=== PATIENT | female | born 1955 | race Caucasian/White ===

== ENCOUNTER 2016-11-21 13:42 | Inpatient (IN) | payer MEDICARE ==
[~2016-11-21] VITALS: Ht 154.9 cm; Wt 127.3 kg
[~2016-11-21 13:42] MED LIST: ACIDOPHILUS LAC1 CAP PO; HYDROCODONE-APA1 TAB PO; LASIX20 MG PO; LIPITOR40 MG PO; MELATONIN 3 MG1 TAB PO; MULTIPLE VITAMI1 TA1 PO; PRILOSEC20 MG PO; SENNA PLUS TA1 UDTAB PO; SPIRIVA18 MCG INH; VENTOLIN HFA18 GM INH; ZOLOFT50 MG PO
[2016-11-21 14:32] LABS: BASOPHILS 0.1 % (0-2); EOSINOPHILS 0 % (0-7); HEMATOCRIT 46.7 % (36.0-48.0); HEMOGLOBIN 14.6 g/dL (12-16); IMMATURE GRANULOCYTES 0.4 % (0-5); LYMPHOCYTES 8.8 % (15-50); MCH 30.8 pg (26.0-34.0); MCHC 31.3 g/dL (31.0-37.0); MCV 98.5 fL (80.0-100.0); MEAN PLATELET VOLUME 9.9 fL (7.4-10.4); MONOCYTES 4.6 % (2-11); NEUTROPHILS 86.1 % (40-80); PLATELET COUNT 211 10x3/uL (130-400); RBC 4.74 10x6/uL (4.00-5.40); RDW 14.6 % (11.5-14.5); WBC 14.1 10x3/uL (4.8-10.8)
[2016-11-21 14:50] LABS: ALBUMIN 3.4 g/dL (3.4-5.0); ALKALINE PHOSPHATASE 103 U/L (46-116); ALT (SGPT) 33 U/L (10-68); BILIRUBIN - TOTAL 0.65 mg/dL (0.2-1.3); CALC OSMOLALITY 276 mosm/kg (275-300); CALCIUM 9.2 mg/dL (8.5-10.1); CARBON DIOXIDE 26.4 mmol/L (21.0-32.0); CHLORIDE - SERUM 101 mmol/L (98-107); CREATININE - SERUM 0.9 mg/dL (0.6-1.3); GLUCOSE 112 mg/dL (74-106); POTASSIUM - SERUM 4.4 mmol/L (3.5-5.1); SODIUM 137 mmol/L (136-145); UREA NITROGEN 17 mg/dL (7-18); eGFR NON AFRICAN AMERICAN 67 mL/min (90-120)
[2016-11-21 15:01] LABS: CHOL - HDL RATIO 3.4 ratio (2.3-4.1); CHOLESTEROL, TOTAL 201 mg/dL (0-200); CKMB 0.4 U/L (0.0-3.6); CREATINE KINASE 60 UL (21-215); HDL CHOLESTEROL 60 mg/dL (32-96); LDL CHOLESTEROL 120 mg/dL (0-100); TRIGLYCERIDE 105 mg/dL (30-200); TROPONIN-I < 0.017 ng/mL (0.000-0.060)
[2016-11-21 15:49] LABS: APPEARANCE CLOUDY (CLEAR); BILIRUBIN NEGATIVE (NEGATIVE); COLOR YELLOW (YELLOW); GLUCOSE NEGATIVE (NEGATIVE); KETONE NEGATIVE (NEGATIVE); LEUKOCYTE ESTERASE NEGATIVE (NEGATIVE); NITRITE NEGATIVE (NEGATIVE); PROTEIN NEGATIVE (NEGATIVE); UROBILINOGEN NORMAL (NORMAL)
[2016-11-21 16:31] LABS: PRO BNP 2092 pg/mL (0-125)
[2016-11-21 19:00] VITALS: BP 94/52
--- NOTE | 2016-11-22 00:38 | NUR ---
REC'D IN BED AWAKE AND ALERT. RESP EVEN AND UNLABORED WITH NO DISTRESS NOTED. HAS O2 IN USE BCN @ 2 L/M. ASSESSMENT COMPLETED. C/L IN REACH AT BEDSIDE.
[2016-11-22 04:00] VITALS: BP 130/50
[2016-11-22 05:54] VITALS: Ht 154.9 cm; Wt 127.3 kg
[2016-11-22] MEDS ORDERED: LASIX40 MG PO (06:52)
[2016-11-22] MEDS ORDERED: COZAAR100 MG PO (06:53)
[2016-11-22] MEDS ORDERED: LIPITOR40 MG PO (06:53)
[2016-11-22] MEDS ORDERED: SINGULAIR10 MG PO (06:54)
[2016-11-22] MEDS ORDERED: COREG 3.1253.125 MG PO (06:54)
[2016-11-22] MEDS ORDERED: ATIVAN0.5 MG PO (06:55)
[2016-11-22 06:56] LABS: BASOPHILS 0.1 % (0-2); EOSINOPHILS 0.3 % (0-7); HEMATOCRIT 39.1 % (36.0-48.0); HEMOGLOBIN 12.4 g/dL (12-16); IMMATURE GRANULOCYTES 0.2 % (0-5); LYMPHOCYTES 15.9 % (15-50); MCH 31.2 pg (26.0-34.0); MCHC 31.7 g/dL (31.0-37.0); MCV 98.2 fL (80.0-100.0); MEAN PLATELET VOLUME 9.7 fL (7.4-10.4); MONOCYTES 6.7 % (2-11); NEUTROPHILS 76.8 % (40-80); PLATELET COUNT 209 10x3/uL (130-400); RBC 3.98 10x6/uL (4.00-5.40); RDW 14.9 % (11.5-14.5)
[2016-11-22] MEDS ORDERED: ATROVENT HFA12.9 GM INH (06:56)
[2016-11-22] MEDS ORDERED: ZOLOFT50 MG PO (06:57)
[2016-11-22] MEDS ORDERED: ZOLOFT25 MG PO (06:58)
[2016-11-22] MEDS ORDERED: RESTORIL15 MG PO (06:59)
--- NOTE | 2016-11-22 07:00 | NUR ---
REPORT RECIEVED ASSUMED CARE. PATIENT IN BED WITH IV INTACT. NO COMPLAINTS. CALL LIGHT WITHIN REACH.
--- NOTE | 2016-11-22 07:00 | NUR ---
REPORT RECIEVED, ASSUMED CARE. PATIENT IN BED WITH IV INTACT. CALL LIGHT WITHIN REACH.
[2016-11-22 07:10] LABS: WBC 9.4 10x3/uL (4.8-10.8)
[2016-11-22] MEDS ORDERED: ELIQUIS2.5 MG PO (07:19)
[2016-11-22] MEDS ORDERED: MULTIPLE VITAMI1 TA1 PO (07:20)
[2016-11-22] MEDS ORDERED: SENNA PLUS TA1 UDTAB PO (07:20)
[2016-11-22] MEDS ORDERED: MUCINEX600 MG PO (07:21)
[2016-11-22] MEDS ORDERED: TUMS500 MG PO (07:22)
[2016-11-22] MEDS ORDERED: HYDROCODONE-APA1 TAB PO (07:24)
[2016-11-22] MEDS ORDERED: GABAPENTIN100 MG PO (07:25)
[2016-11-22 07:33] LABS: ALBUMIN 2.8 g/dL (3.4-5.0); ANION GAP 11.5 mmol/L (8-16); BILIRUBIN - TOTAL 0.6 mg/dL (0.2-1.3); CALCIUM 8.2 mg/dL (8.5-10.1); CARBON DIOXIDE 28.9 mmol/L (21.0-32.0); MAGNESIUM - SERUM 1.6 mg/dL (1.8-2.4); PHOSPHOROUS 3.8 mg/dL (2.5-4.9); THYROID STIMULATING HORMONE 6.34 uIU/mL (0.36-3.74)
[2016-11-22 07:34] LABS: POTASSIUM - SERUM 3.4 mmol/L (3.5-5.1)
[2016-11-22 07:40] LABS: HEMOGLOBIN A1C 5.5 % (4.8-6.0)
[2016-11-22] MEDS ORDERED: FLUTICASONE PRO16 GM NASAL (08:32)
[2016-11-22 08:37] VITALS: BP 113/61
[2016-11-22 12:05] VITALS: BP 127/86
--- NOTE | 2016-11-22 15:04 | NUR ---
Patient is a resident at [facility]. REYES spoke with her nurse, Alberta, at [phone]. patient was admitted 09/25/2010. Alberta states she will be admitted back to facility. TC to [phone] to speak with her daughter Diana Fragoso. No answer. REYES did not leave message. Will call again.
--- NOTE | 2016-11-22 16:00 | NUR ---
IV STARTED IN RIGHT AC FOR CT BY VICKY. IV IN LEFT BREAST INTACT. PATIENT HAS NO COMPLAINTS AT THIS TIME. CALL LIGHT WITHIN REACH.
[2016-11-22 16:30] VITALS: BP 112/61
--- NOTE | 2016-11-22 18:55 | NUR ---
PATIENT IN BED WITH IV INTACT. LEVAQUIN INFUSING AT THIS TIME. NO COMPLAINTS. CALL LIGHT WITHIN REACH.
--- NOTE | 2016-11-22 19:00 | NUR ---
PATIENT SLEEPING SUPINE IN BED. HOB 10 DEGREES. RR EVEN AND UNLABORED. O2 @ 2L VIA NC. 0 S/S OF DISTRESS. STATES PAIN IS AN 8/10 IN SHOULDERS, BUT PATIENT DOES NOT HAVE PAIN MEDICATION ORDERED. LEVAQUIN INFUSIN INTO IV IN RIGHT AC BUT SITE BEGINNING TO LOOK RED AND PATIENT C/O BURNING. STOPPED INFUSION. LINENS AND GOWN CHANGED DUE TO INCONTINENT EPISODE OF BLADDER AND BOWEL. NO OTHER NEEDS AT THIS TIME.
--- NOTE | 2016-11-22 23:00 | NUR ---
PATIENT UNABLE TO HAVE CT BECAUSE SHE DOES NOT HAVE WORKING IV. NIGHTTIME MEDICATIONS ADMINISTERED, BUT IV MEDS NOT GIVEN. LINENS AND GOWN CHANGED AGAIN.
[2016-11-23] VITALS: BP 122/66
--- NOTE | 2016-11-23 03:00 | NUR ---
PATIENT SLEEPING WITH NO DISTRESS NOTED. CALL LIGHT WITHIN REACH.
[2016-11-23 06:13] LABS: BASOPHILS 0 % (0-2); EOSINOPHILS 1.4 % (0-7); HEMATOCRIT 39.1 % (36.0-48.0); HEMOGLOBIN 12.3 g/dL (12-16); IMMATURE GRANULOCYTES 0.2 % (0-5); LYMPHOCYTES 19.9 % (15-50); MCH 30.9 pg (26.0-34.0); MCHC 31.5 g/dL (31.0-37.0); MCV 98.2 fL (80.0-100.0); MEAN PLATELET VOLUME 9.7 fL (7.4-10.4); MONOCYTES 7.7 % (2-11); NEUTROPHILS 70.8 % (40-80); PLATELET COUNT 217 10x3/uL (130-400); RBC 3.98 10x6/uL (4.00-5.40); RDW 15.2 % (11.5-14.5)
[2016-11-23 06:42] LABS: WBC 5.9 10x3/uL (4.8-10.8)
--- NOTE | 2016-11-23 07:00 | NUR ---
REPORT RECIEVED ASSUMED CARE. PATIENT IN BED WITH NO IV AT THIS TIME. CONSULT PLACED FOR VASCULAR NURSE. CALL LIGHT WITHIN REACH.
[2016-11-23 07:25] LABS: ANION GAP 11.8 mmol/L (8-16); CALCIUM 8.8 mg/dL (8.5-10.1); CARBON DIOXIDE 27.7 mmol/L (21.0-32.0); CREATININE - SERUM 0.9 mg/dL (0.6-1.3); PHOSPHOROUS 3.6 mg/dL (2.5-4.9); POTASSIUM - SERUM 3.5 mmol/L (3.5-5.1)
[2016-11-23 07:27] LABS: MAGNESIUM - SERUM 2.2 mg/dL (1.8-2.4)
[2016-11-23 08:34] VITALS: BP 125/76
[2016-11-23 12:06] VITALS: BP 135/54
--- NOTE | 2016-11-23 18:55 | NUR ---
PATIENT IN BED WITH NO COMPLAINTS AT THIS TIME. IV INTACT. CALL LIGHT WITHIN REACH.
[2016-11-23 19:00] VITALS: BP 115/38
--- NOTE | 2016-11-23 20:30 | NUR ---
AWAKE,ALERT,NO COMPLAINTS AT THIS TIME. INCONTINENT OF URINE. LINENS CHANGED WIHT APRIL CARE GIVEN.MIDLINE CATH INTACT TO LEFT AC. NO REDNESS OR EDEMA NOTED. CL IN REACH
--- NOTE | 2016-11-24 00:50 | NUR ---
PATIENT RESTING WITH EYES CLOSED AND NO VISIBLE SIGNS OF DISTRESS. BED IN THE LOWEST POSITION AND CALL LIGHT WITHIN REACH.
[2016-11-24 02:27] VITALS: BP 92/30
[2016-11-24 04:00] VITALS: BP 107/55
--- NOTE | 2016-11-24 05:45 | NUR ---
WATCHING TV QUIETLY. NO COMPLAITNS VOICED. CL IN REACH.
--- NOTE | 2016-11-24 07:30 | NUR ---
REICEVED PT DURING WALKING ROUNDS. PT RESTING IN BED WITH NO COMPLAINTS OF PAIN OR DISCOMFORT AT THIS TIME. ASSESSMENT DONE PER FLOWSHEET. BED IN LOW POSITION AND CALL LIGHT WITHIN REACH. WILL CONTINUE TO MONITOR.
[2016-11-24 08:44] VITALS: BP 130/63
[2016-11-24 13:37] VITALS: BP 128/64
[2016-11-24] MEDS ORDERED: LEVAQUIN750 MG PO (13:55)
[2016-11-24] MEDS ORDERED: BROVANA15 MCG/2 M INH (13:56)
[2016-11-24] MEDS ORDERED: K-DUR20 MEQ PO (13:59)
[2016-11-24] MEDS ORDERED: PULMICORT0.5 MG/21 PO (13:59)
[2016-11-24] MEDS ORDERED: LASIX40 MG PO (13:59)
[2016-11-24] MEDS ORDERED: FLORANEX / LACT1 TAB PO (14:00)
[2016-11-24] MEDS ORDERED: PROTONIX40 MG PO (14:01)
--- NOTE | 2016-11-24 14:46 | NUR ---
PATIENT BEING DISCHARGED TODAY BACK TO [facility] TO A CUSTODIAL BED. SHE IS BEING TRANSFERED VIA AMBULANCE.
--- NOTE | 2016-11-24 15:47 | NUR ---
IV REMOVED AND PT DISCHARGED VIA AMBULANCE TO [facility], REPORT CALLED TO VIRAJ.
== END 2016-11-24 15:55 | DRG 189 ==
LOC: D.ER 13:42 → D.MS 17:25
PROVIDERS: Emergency Medicine; Physician Assistant; ADMIT Family Medicine
DX: J96.91 Respiratory failure, unspecified with hypoxia (principal); J18.9 Pneumonia, unspecified organism; J44.0 Chronic obstructive pulmonary disease with (acute) lower respiratory infection; I69.354 Hemiplegia and hemiparesis following cerebral infarction affecting left non-dominant side; Z68.43 Body mass index [BMI] 50.0-59.9, adult; J44.1 Chronic obstructive pulmonary disease with (acute) exacerbation; I25.10 Atherosclerotic heart disease of native coronary artery without angina pectoris; I10 Essential (primary) hypertension; E78.5 Hyperlipidemia, unspecified; K21.9 Gastro-esophageal reflux disease without esophagitis; E66.01 Morbid (severe) obesity due to excess calories; Z85.118 Personal history of other malignant neoplasm of bronchus and lung; M25.519 Pain in unspecified shoulder; R15.9 Full incontinence of feces; R32 Unspecified urinary incontinence

== ENCOUNTER 2016-12-13 23:26 | Emergency (ER) | payer MEDICARE ==
[2016-11-22 05:54] VITALS: BMI 53.0
[~2016-12-13 23:26] MED LIST changes: +ATIVAN0.5 MG PO; +ATROVENT HFA12.9 GM INH; +BROVANA15 MCG/2 M INH; +COREG 3.1253.125 MG PO; +COZAAR100 MG PO; +ELIQUIS2.5 MG PO; +FLORANEX / LACT1 TAB PO; +FLUTICASONE PRO16 GM NASAL; +GABAPENTIN100 MG PO; +K-DUR20 MEQ PO; +LASIX40 MG PO; +LEVAQUIN750 MG PO; +MUCINEX600 MG PO; +PROTONIX40 MG PO; +PULMICORT0.5 MG/21 PO; +RESTORIL15 MG PO; +SINGULAIR10 MG PO; +TUMS500 MG PO; +ZOLOFT25 MG PO
== END 2016-12-14 02:00 | disposition home or self-care (01) ==
LOC: D.ER 23:26
DX: M79.605 Pain in left leg (principal); R05 Cough; J44.9 Chronic obstructive pulmonary disease, unspecified; I10 Essential (primary) hypertension; F17.200 Nicotine dependence, unspecified, uncomplicated

== ENCOUNTER → 2017-12-08 12:42 | Outpatient (CLI) | payer MEDICARE ==
[2016-11-22 05:54] VITALS: BMI 53.0
== END | disposition home or self-care (01) ==
LOC: D.CT 12:42
DX: M25.552 Pain in left hip (principal)

== ENCOUNTER 2018-08-09 14:42 | Inpatient (IN) | payer MEDICARE ==
[~2018-08-09] VITALS: Ht 154.9 cm; Wt 107.0 kg
[2018-08-09] VITALS (9 sets, daily range): BP systolic 66–152; BP diastolic 39–93; BMI 44.8
[2018-08-09 15:47] LABS: BASOPHILS 0 % (0-2); EOSINOPHILS 0.1 % (0-7); HEMATOCRIT 43.1 % (36.0-48.0); HEMOGLOBIN 13.7 g/dL (12-16); IMMATURE GRANULOCYTES 0.1 % (0-5); LYMPHOCYTES 16.7 % (15-50); MCH 32.6 pg (26.0-34.0); MCHC 31.8 g/dL (31.0-37.0); MCV 102.6 fL (80.0-100.0); MEAN PLATELET VOLUME 10.3 fL (7.4-10.4); NEUTROPHILS 78.1 % (40-80); WBC 7.2 10x3/uL (4.8-10.8)
[2018-08-09 15:55] LABS: INR 1.27 (0.85-1.17); PLATELET COUNT 169 10x3/uL (130-400); PROTIME 15.4 SECONDS (11.6-15.0)
[2018-08-09 15:56] LABS: APTT 33.4 SECONDS (22.8-39.4)
[2018-08-09 16:02] LABS: ALBUMIN 3.2 g/dL (3.4-5.0); ALKALINE PHOSPHATASE 92 U/L (46-116); ALT (SGPT) 16 U/L (10-68); BILIRUBIN - TOTAL 0.37 mg/dL (0.2-1.3); CALC OSMOLALITY 289 mosm/kg (275-300); CALCIUM 8.8 mg/dL (8.5-10.1); CARBON DIOXIDE 25.6 mmol/L (21.0-32.0); CHLORIDE - SERUM 109 mmol/L (98-107); CREATININE - SERUM 1.1 mg/dL (0.6-1.3); GLUCOSE 115 mg/dL (74-106); POTASSIUM - SERUM 4.6 mmol/L (3.5-5.1); PROTEIN - SERUM 7.8 g/dL (6.4-8.2); SODIUM 144 mmol/L (136-145); UREA NITROGEN 18 mg/dL (7-18); eGFR NON AFRICAN AMERICAN 53 mL/min (90-120)
[2018-08-09 16:14] LABS: CREATINE KINASE 31 UL (21-215); TROPONIN-I 0.017 ng/mL (0.000-0.060)
[2018-08-09 17:08] LABS: APPEARANCE CLEAR (CLEAR); BILIRUBIN NEGATIVE (NEGATIVE); COLOR YELLOW (YELLOW); GLUCOSE NEGATIVE (NEGATIVE); KETONE NEGATIVE (NEGATIVE); NITRITE NEGATIVE (NEGATIVE); PROTEIN NEGATIVE (NEGATIVE); SPECIFIC GRAVITY 1.015 (1.005-1.020); UROBILINOGEN NORMAL (NORMAL)
[2018-08-09] MEDS ORDERED: ABILIFY2 MG PO (17:17)
[2018-08-09] MEDS ORDERED: LIPITOR40 MG PO (17:18)
[2018-08-09] MEDS ORDERED: COZAAR100 MG PO (17:21)
[2018-08-09] MEDS ORDERED: ISOSORBIDE MONO30 M1 PO (17:21)
[2018-08-09] MEDS ORDERED: VITAMIN D5000 UNIT PO (17:23)
[2018-08-09] MEDS ORDERED: KLONOPIN1 MG PO (17:24)
[2018-08-09] MEDS ORDERED: NUEDEXTA 20-101 EACH PO (17:25)
[2018-08-09] MEDS ORDERED: BACLOFEN10 MG PO (17:26)
[2018-08-09] MEDS ORDERED: PERCOCET 10-321 EAC1 PO (17:28)
--- NOTE | 2018-08-09 19:15 | NUR ---
RECEIVED PT FROM ER VIA STRECTHER TO ROOM 2301. PT IS AWAKE AND SCREAMING OUT SAYING HER BACK IS HURTING. PT ATTACHED TO MONITORS AND MONITORS ARE WORKING CORRECTLY. DR. VALLEJO PAGED REGARDING PT ARRIVAL AND PAIN STATUS. ORDERS RECEIVED. PT'S DAUGHTER IS AT BEDSIDE CURRENTLY AND IS HAVING THE POA PAPERWORK FAXED OVER TO US FROM THE NURSING FACILITY. WILL CONTINUE TO MONITOR.
[2018-08-09] MEDS ORDERED: ATROVENT HFA12.9 GM INH (20:03)
--- NOTE | 2018-08-09 21:01 | NUR ---
PT IS LAYING IN BED. TOOK EVENING MEDICATIONS WITH NO PROBLEMS. NO SIGNS OF ACUTE DISTRESS AT THIS TIME. WILL CONTINUE TO MONITOR.
--- NOTE | 2018-08-09 23:01 | NUR ---
REASSESSMENT COMPLETED, SEE FLOWSHEET FOR DETAILS. PT IS RESTING IN BED WITH EYES CLOSED AT THIS TIME. NO SIGNS OF ACUTE DISTRESS. WILL CONTINUE TO MONITOR.
[2018-08-10] VITALS (13 sets, daily range): BP systolic 85–162; BP diastolic 48–101; Ht 154.9 cm; Wt 107.0 kg
--- NOTE | 2018-08-10 01:01 | NUR ---
PT IS RESTING IN BED WITH EYES CLOSED. PT REPOSITONED FOR COMFORT. NO SIGNS OF ACUTE DISTRESS. WILL CONTINUE TO MONITOR.
--- NOTE | 2018-08-10 03:03 | NUR ---
REASSESSMENT COMPLETED, SEE FLOWSHEET FOR DETAILS. PT IS RESTING IN BED WITH EYES CLOSED. NO NEEDS VOICED. NO SIGNS OF ACUTE DISTRESS. WILL CONTINUE TO MONITOR.
[2018-08-10 04:52] LABS: BASOPHILS 0.2 % (0-2); EOSINOPHILS 0.5 % (0-7); HEMATOCRIT 39.4 % (36.0-48.0); HEMOGLOBIN 12.4 g/dL (12-16); IMMATURE GRANULOCYTES 0.2 % (0-5); LYMPHOCYTES 22.8 % (15-50); MCH 32.3 pg (26.0-34.0); MCHC 31.5 g/dL (31.0-37.0); MCV 102.6 fL (80.0-100.0); MEAN PLATELET VOLUME 10.4 fL (7.4-10.4); MONOCYTES 8.3 % (2-11); PLATELET COUNT 180 10x3/uL (130-400); RBC 3.84 10x6/uL (4.00-5.40); RDW 13.9 % (11.5-14.5)
--- NOTE | 2018-08-10 05:03 | NUR ---
PT IS RESTING IN BED WITH EYES CLOSED AT THIS TIME. NO SIGNS OF ACUTE DISTRESS. WILL CONTINUE TO MONITOR.
[2018-08-10 05:13] LABS: ALBUMIN 2.9 g/dL (3.4-5.0); BILIRUBIN - TOTAL 0.28 mg/dL (0.2-1.3); CALCIUM 8.4 mg/dL (8.5-10.1); CARBON DIOXIDE 27.6 mmol/L (21.0-32.0); POTASSIUM - SERUM 4.6 mmol/L (3.5-5.1); PROTEIN - SERUM 6.5 g/dL (6.4-8.2)
--- NOTE | 2018-08-10 10:11 | NUR ---
0700 RESTING QUIETLY NO DISTRESS NOTED ASSESSMENT COMPLETE
--- NOTE | 2018-08-10 10:12 | NUR ---
0900 DR VALLEJO PRESENT WRITING DISCHARGE ORDERS
--- NOTE | 2018-08-10 11:05 | MORECARE ---
CASE MANAGEMENT DISCHARGE SUMMARY PATIENT: VICKY SHAH UNIT: [id number] ADM DATE: 08/09/18 AGE: 63 : 54 SEX: F ROOM/BED: D.2301 AUTHOR: XENA WIN PHYSICIAN: REFERRING PHYSICIAN: RAO VALLEJO MD DATE OF SERVICE: 08/10/18 Discharge Plan Patient Name: VICKY SHAH Facility: [facility]:[place] : 1955 Planned Disposition: Nursing Facility [facility] Cert Anticipated Discharge Date: Discharge Date: Expected LOS: Initial Reviewer: [email or web address] Initial Review Date: 08/10/2018 Generated: 08/10/18 12:05 pm External Providers External Provider: [facility] Next Contact Date: Service Request Date: Service Type: Resolution: Reviewer: Comments: Patient Name: VICKY SHAH Page [phone] at 1105 All edits/amendments must be made on the electronic document DICTATION DATE: 08/10/18 1105 NITROCELLULOSE MAKER: PRUDENCIO 08/10/18 1105 RPT#: [id number] DC DATE: STATUS: ADM IN [place] [address] [place] [address] END OF REPORT
--- NOTE | 2018-08-10 11:13 | MORECARE ---
CASE MANAGEMENT DISCHARGE SUMMARY PATIENT: VICKY SHAH UNIT: [id number] ADM DATE: 08/09/18 AGE: 63 : 53 SEX: F ROOM/BED: D.2301 AUTHOR: XENA WIN PHYSICIAN: REFERRING PHYSICIAN: RAO VALLEJO MD DATE OF SERVICE: 08/10/18 Discharge Plan Patient Name: VICKY SHAH Facility: [facility]:[place] : 1955 Planned Disposition: Nursing Facility [facility] Cert Anticipated Discharge Date: Discharge Date: Expected LOS: Initial Reviewer: [email or web address] Initial Review Date: 08/10/2018 Generated: 08/10/18 12:13 pm DCPIA - Discharge Planning Initial Assessment Updated by [email or web address]: Natalie Bingham on 08/10/18 11:12 am * Is the patient Alert and Oriented? No * How many steps to enter\exit or inside your home? * PCP GENEVIEVE * Pharmacy [facility] * Preadmission Environment [facility] * Facility Name [facility] * ADLs Partial Dependent * Partial ADLs (Assistance needed) Ambulation Bathing Dressing Eating Medication Management Toileting Transfers * List name and contact numbers for known caregivers / representatives who currently or will assist patient after discharge: EDDIE MORAN - [facility] -[phone] * Verbal permission to speak to the caregivers and representatives has been obtained from the patient. N/A * Additional services required to return to the preadmission environment? No * Can the patient safely return to the preadmission environment? Yes * Has this patient been hospitalized within the prior 30 days at any hospital? No Last DP export: 08/10/18 10:05 a Patient Name: VICKY SHAH Page [id number] at 1113 All edits/amendments must be made on the electronic document DICTATION DATE: 08/10/181111 CERAMIC DESIGN ENGINEER: PRUDNECIO 08/10/18 111 RPT#: [id number] DC DATE: STATUS: ADM IN [facility] [address] [place] [address] END OF REPORT
--- NOTE | 2018-08-10 11:29 | MORECARE ---
CASE MANAGEMENT DISCHARGE SUMMARY PATIENT: VICKY SHAH UNIT: [id number] ADM DATE: 08/09/18 AGE: 63 : 53 SEX: F ROOM/BED: D.2301 AUTHOR: AUDELIA,DOC PHYSICIAN: REFERRING PHYSICIAN: RAO VALLEJO MD DATE OF SERVICE: 08/10/18 Discharge Plan Patient Name: VICKY SHAH Facility: [facility]:[place] : 1955 Planned Disposition: Nursing Facility [facility] Cert Anticipated Discharge Date: Discharge Date: Expected LOS: Initial Reviewer: [email or web address] Initial Review Date: 08/10/2018 Generated: 08/10/18 12:28 pm Comments DCP- Discharge Planning Updated by [email or web address]: Natalie Bingham on 08/10/18 10:[address] Patient Name: VICKY SHAH Admission Status: ER Accout number: [id number] Admission Date: 08-09-2018 : 1955 Admission Diagnosis: Attending: RAO VALLEJO Current LOS: 1 Anticipated DC Date: Planned Disposition: Nursing Facility [facility] Cert Primary Insurance: MEDICARE A & B Discharge Planning Comments: CM notified of plan for patient to be discharged today. [facility] . [facility] stated they would accept patient back to facility. They stated they had a contract with [facility] . CM contacted [facility] and they stated they would have a ambulance here within the hour and no transfer forms needed. CM notified nursing of ambulance arrival time. CM will continue to follow and assist as needed with discharge planning / needs. Tobacco Cloth Reclaimer: Natalie Bingham DCPIA - Discharge Planning Initial Assessment Updated by [email or web address]: Natalie Bingham on 08/10/18 11:12 am * Is the patient Alert and Oriented? No * How many steps to enter\exit or inside your home? * PCP GENEVIEVE * Pharmacy [facility] * Preadmission Environment [facility] * [facility] * ADLs Partial Dependent * Partial ADLs (Assistance needed) Ambulation Bathing Dressing Eating Medication Management Toileting Transfers * List name and contact numbers for known caregivers / representatives who currently or will assist patient after discharge: EDDIE MORAN - DAUGHTER -[phone] * Verbal permission to speak to the caregivers and representatives has been obtained from the patient. N/A * Additional services required to return to the preadmission environment? No * Can the patient safely return to the preadmission environment? Yes * Has this patient been hospitalized within the prior 30 days at any hospital? No Last DP export: 08/10/18 10:13 a Patient Name: VICKY SHAH Page 14049 at 1129 All edits/amendments must be made on the electronic document DICTATION DATE: 08/10/181127 STEAM TUNNEL FEEDER: PRUDENCIO 08/10/181127 RPT#: [id number] DC DATE: STATUS: ADM IN [facility] [address] [place] [address] END OF REPORT
--- NOTE | 2018-08-10 12:06 | NUR ---
1100 RESTING QUIETLY PAPERWORK COMPLETE FOR DISCHARGE WAITING ON AMBULALNCE TRANSPORT
--- NOTE | 2018-08-10 12:06 | NUR ---
1205 REPORT CALLED TO LASHAWN VARGAS AT [facility].
--- NOTE | 2018-08-10 13:38 | NUR ---
1300 AMBULANCE TRANSPORT LEAVING WITH PATIENT TO RETURN TO [place]
--- NOTE | 2018-08-10 15:56 | MORECARE ---
CASE MANAGEMENT DISCHARGE SUMMARY PATIENT: VICKY SHAH UNIT: [id number] ADM DATE: 08/09/18 AGE: 63 : 53 SEX: F ROOM/BED: D.2301 AUTHOR: AUDELIA,DOC PHYSICIAN: REFERRING PHYSICIAN: RAO VALLEJO MD DATE OF SERVICE: 08/10/18 Discharge Plan Patient Name: VICKY SHAH Facility: [facility]:[place] : 1955 Planned Disposition: Nursing Facility [facility] Cert Anticipated Discharge Date: Discharge Date: 08/10/2018 Expected LOS: Initial Reviewer: [email or web address] Initial Review Date: 08/10/2018 Generated: 08/10/18 4:56 pm Comments DCP- Discharge Planning Updated by [email or web address]: Natalie Bingham on 08/10/18 10:[address] Patient Name: VICKY SHAH Admission Status: ER Accout number: [id number] Admission Date: 08-09-2018 : 1955 Admission Diagnosis: Attending: RAO VALLEJO Current LOS: 1 Anticipated DC Date: Planned Disposition: Nursing Facility [facility] Cert Primary Insurance: MEDICARE A & B Discharge Planning Comments: CM notified of plan for patient to be discharged today. [facility] . [facility] stated they would accept patient back to facility. They stated they had a contract with [facility] . CM contacted [facility] and they stated they would have a ambulance here within the hour and no transfer forms needed. CM notified nursing of ambulance arrival time. CM will continue to follow and assist as needed with discharge planning / needs. Lavatory Attendant: Natalie Bingham DCPIA - Discharge Planning Initial Assessment Updated by [email or web address]: Natalie Bingham on 08/10/18 11:12 am * Is the patient Alert and Oriented? No * How many steps to enter\exit or inside your home? * PCP GENEVIEVE * Pharmacy [facility] * Preadmission Environment [facility] * [facility] * ADLs Partial Dependent * Partial ADLs (Assistance needed) Ambulation Bathing Dressing Eating Medication Management Toileting Transfers * List name and contact numbers for known caregivers / representatives who currently or will assist patient after discharge: EDDIE MORAN - DAUGHTER -[phone] * Verbal permission to speak to the caregivers and representatives has been obtained from the patient. N/A * Additional services required to return to the preadmission environment? No * Can the patient safely return to the preadmission environment? Yes * Has this patient been hospitalized within the prior 30 days at any hospital? No Last DP export: 08/10/18 10:29 a Patient Name: VICKY SHAH Page [id number] at 1556 All edits/amendments must be made on the electronic document DICTATION DATE: 08/10/18 1556 PASTING MACHINE OFFBEARER: PRUDENCIO 08/10/181555 RPT#: [id number] DC DATE:08/10/18 STATUS: DIS IN [facility] [address] [place] [address] END OF REPORT
== END 2018-08-10 13:39 | DRG 918 ==
LOC: D.ER 14:42 → D.EDHOLD 18:43 → D.ICU 18:54
PROVIDERS: Family Medicine; ADMIT Family Medicine; ATTEND Family Medicine
DX: T50.901A Poisoning by unspecified drugs, medicaments and biological substances, accidental (unintentional), initial encounter (principal); I69.354 Hemiplegia and hemiparesis following cerebral infarction affecting left non-dominant side; F17.200 Nicotine dependence, unspecified, uncomplicated; I25.10 Atherosclerotic heart disease of native coronary artery without angina pectoris; I10 Essential (primary) hypertension; J44.9 Chronic obstructive pulmonary disease, unspecified; K21.9 Gastro-esophageal reflux disease without esophagitis; E78.5 Hyperlipidemia, unspecified; E55.9 Vitamin D deficiency, unspecified; K59.00 Constipation, unspecified; J30.9 Allergic rhinitis, unspecified; G89.29 Other chronic pain; R40.2143 Coma scale, eyes open, spontaneous, at hospital admission; R40.2243 Coma scale, best verbal response, confused conversation, at hospital admission; R40.2363 Coma scale, best motor response, obeys commands, at hospital admission; F41.8 Other specified anxiety disorders

== ENCOUNTER → 2018-08-25 13:06 | Outpatient (CLI) | payer MEDICARE ==
[2018-08-10 09:25] VITALS: BMI 44.5
[~2018-08-25 13:06] MED LIST changes: +ABILIFY2 MG PO; +BACLOFEN10 MG PO; +ISOSORBIDE MONO30 M1 PO; +KLONOPIN1 MG PO; +NUEDEXTA 20-101 EACH PO; +PERCOCET 10-321 EAC1 PO; +VITAMIN D5000 UNIT PO
== END | disposition home or self-care (01) ==
LOC: D.RAD 13:00
PROVIDERS: ATTEND Family Medicine
DX: R13.10 Dysphagia, unspecified (principal)